=== PATIENT | female | born 1980 | race African-American/Black ===

== ENCOUNTER 2018-06-13 17:35 | Emergency (ER) | payer SELFPAY ==
[~2018-06-13] VITALS: Ht 167.6 cm; Wt 68.0 kg
[2018-06-13 17:58] VITALS: BP 148/97
[2018-06-13] MEDS ORDERED: dexamethasone sod phosphate 10mg/ml inj PO STA (21:25)
== END 2018-06-13 23:14 | disposition home or self-care (01) ==
LOC: ER 17:35
DX: R13.10 Dysphagia, unspecified (principal); Z87.891 Personal history of nicotine dependence
CPT/HCPCS: 70360; 99283; J1100